=== PATIENT | female | born 1965 | race Caucasian/White ===

== ENCOUNTER 2019-10-29 18:38 | Emergency (ER) | payer OTHER, SELFPAY ==
[2019-10-29 19:04] VITALS: BP 158/100; PULSE 84; RESP 20; TEMP 36.9; O2SAT 97
--- NOTE | 2019-10-29 19:22 | ED.GENADULT ---
HPI - General Adult General Chief complaint: Upper Respiratory Infection Stated complaint: cough Time Seen by Provider: 10/29/19 19:22 Source: patient Mode of arrival: ambulatory Limitations: no limitations History of Present Illness HPI narrative: 53-year-old female patient presents to the [facility] with complaints of cold symptoms and cough for the past 3 to 4 days. Denies any fevers. Patient denies any ear pain. Patient states she has been a little stuffy with a runny nose. Denies any sore throat. Patient states she has had a lot of drainage in the back the throat and states that she coughs mostly when she lays down at night. Denies any chest pain or shortness of breath. Patient states she is an active smoker. Patient denies getting a flu shot this year. Patient states she has tried DayQuil, NyQuil for her symptoms. Related Data Allergies Allergy/AdvReac Type Severity Reaction Status Date / Time Sulfa (Sulfonamide Allergy Unknown Rash Verified 10/29/19 19:08 Antibiotics) Review of Systems Review of Systems: Narrative: CONSTITUTIONAL: Denies fever, chills, or sweats. EYES: Denies visual changes, redness, or discharge. ENT: Positive rhinorrhea, congestion, denies sore throat, or otalgia. CARDIOVASCULAR: Denies chest pain, palpitations, or edema. RESPIRATORY: Positive cough, denies dyspnea. GASTROINTESTINAL: Denies abdominal pain, nausea, vomiting, or diarrhea. GENITOURINARY: Denies dysuria or hematuria. SKIN: Denies rash or itching. MUSCULOSKELETAL: Denies back pain, joint pain, or myalgia. NEUROLOGIC: Denies headache, numbness, or weakness. PSYCHIATRIC: Denies anxiety or depression. PMFSH Comments At the time of my signature I agree with nursing past medical history, surgical, social, and family history. There is no relevant family history pertinent to the presenting complaint. Exam Narrative: Exam Narrative: GENERAL: Well-appearing, well-nourished, and in no acute distress. HEAD: Normocephalic, atraumatic. No tenderness noted to frontal and maxillary sinuses on palpation. EYES: PERRLA and EOMI. ENT: Nares with erythema and edema noted bilaterally, no rhinorrhea or epistaxis. Mucous membranes moist. Posterior pharynx with some postnasal drip but no erythema no foreign bodies no exudates or lesions present. Bilateral TMs are clear with no erythema or foreign bodies in the canal NECK: Supple. No lymphadenopathy CHEST: Clear to auscultation. No respiratory distress. HEART: Regular rate and rhythm. No murmur heard. Normal peripheral pulses. ABDOMEN: Soft, nontender, nondistended, normal active bowel sounds. EXTREMITIES: Normal range of motion. No edema. SKIN: Warm, dry, no rash. NEURO: No focal deficits. Alert and oriented x3. Course Vital Signs Vital signs: Vital Signs Temperature 36.9 C 10/29/19 19:04 Pulse Rate 84 10/29/19 19:04 Respiratory Rate 10/29/19 19:04 Blood Pressure 158/100 H 10/29/19 19:04 Pulse Oximetry 97 10/29/19 19:04 Temperature 36.9 C 10/29/19 19:04 Pulse Rate 84 10/29/19 19:04 Respiratory Rate 10/29/19 19:04 Blood Pressure 158/100 H 10/29/19 19:04 Pulse Oximetry 97 10/29/19 19:04 Vital signs reviewed. The patient has been informed that they may have pre-hypertension or Hypertension based on a BP reading in the department. I recommend that the patient call the primary care provider listed on their discharge instructions or a physician of their choice this week to arrange follow up for further evaluation of possible pre-hypertension or Hypertension Medical Decision Making Differential Diagnosis Differential Diagnosis: Differential diagnosis: Allergic rhinitis, chronic sinusitis, tonsillitis, acute sinusitis, infectious mononucleosis, seasonal influenza, pertussis, diphtheria, meningococcal disease, viral syndrome, viral bronchitis, RSV. Notified patient that her lungs today are nice and clear. Discussed with patient I think that mostly her cough i
== END 2019-10-29 19:30 | disposition home or self-care (01) ==
PROVIDERS: Emergency Provider Nurse Practitioner Family
DX: J06.9 Acute upper respiratory infection, unspecified (principal); F17.200 Nicotine dependence, unspecified, uncomplicated; I10 Essential (primary) hypertension
CPT/HCPCS: 99213; G0463

== ENCOUNTER 2022-09-07 13:54 | Emergency (ER) | payer OTHER, SELFPAY ==
[2022-09-07 14:08] VITALS: BP 150/79; PULSE 93; RESP 16; TEMP 36.6; O2SAT 98
--- NOTE | 2022-09-07 14:11 | ED.NAVMDI ---
HPI - Nausea/Vomiting/Diarrhea General Chief complaint: Back Pain/Injury Stated complaint: Vomiting Time Seen by Provider: 09/07/22 14:11 Source: patient and RN notes reviewed History of Present Illness HPI Narrative: patient is a 56-year-old female who presents to Urgent Care with her sister with complaints of right posterior shoulder pain. Patient states that she has been having a lot of dry heaves and nausea for the last 2 days that caused her to pull a muscle in her shoulder. Patient denies any abdominal discomfort. States that she has had a lot of chills and nausea. Denies any urinary symptoms. Denies any recent fevers. Patient has been using ice and heat for discomfort. No other acute complaints. No acute distress noted. Patient aware of the plan of care. Some parts of this dictation were generated by voice recognition software and may contain typographical and/or grammatical inaccuracies. Related Data Home Medications Medication Instructions Recorded Confirmed cyclobenzaprine 10 mg tablet mg 09/07/22 diclofenac sodium 1 % topical gel topical 09/07/22 methocarbamol 500 mg tablet mg 09/07/22 naproxen 500 mg tablet mg 09/07/22 Allergies Allergy/AdvReac Type Severity Reaction Status Date / Time Sulfa (Sulfonamide Allergy Unknown Rash Verified 09/07/22 14:26 Antibiotics) Review of Systems Review of Systems: CONSTITUTIONAL: Denies fever, chills, or sweats. EYES: Denies visual changes, redness, or discharge. ENT: Denies rhinorrhea, congestion, sore throat, or otalgia. CARDIOVASCULAR: Denies chest pain, palpitations, or edema. RESPIRATORY: Denies cough or dyspnea. GASTROINTESTINAL: reports nausea and dry heaves GENITOURINARY: Denies dysuria or hematuria. SKIN: Denies rash or itching. MUSCULOSKELETAL: Reports of posterior right shoulder pain NEUROLOGIC: Denies headache, numbness, or weakness. All other systems reviewed are negative, except as documented in HPI. PMFSH Comments At the time of my signature, I reviewed and agree with the nursing past medical, surgical, social, and family history. There is no relevant family history pertinent to the patient complaint. Exam Narrative: GENERAL: This is a well-nourished, well-developed patient, in no apparent distress. HEAD: normocephalic, atraumatic. EYES: PERRL. Sclera clear/white. Vision is grossly intact. EARS: External ears normal, NOSE: External nose normal with no obvious nasal discharge, nares without redness, no rhinorrhea. THROAT: Mucous membranes moist NECK: Neck supple, CARDIOVASCULAR: Regular rate and rhythm without murmurs, gallops, or rubs. RESPIRATORY: Clear to auscultation. Breath sounds equal bilaterally. No wheezes, rales, or rhonchi. GASTROINTESTINAL: Abdomen soft, non-tender, nondistended. Bowel sounds are active. SKIN: warm, intact with no suspicious lesions or rash, good texture and turgor. NEURO: awake, alert, and oriented to person, place and time. There were no obvious focal neurologic abnormalities. EXTREMITIES: range of motion of right upper extremity within normal limits with mild to moderate exacerbated posterior right cervical/ shoulder pain. BACK: Negative bilateral CVA tenderness Course Course Level of Care: Express Care Visit Vital Signs Vital signs: Vital Signs Temperature 97.9 F 09/07/22 14:08 Pulse Rate 93 09/07/22 14:08 Respiratory Rate 16 09/07/22 14:08 Blood Pressure 150/79 H 09/07/22 14:08 Pulse Oximetry 98 09/07/22 14:08 Oxygen Delivery Room Air 09/07/22 14:08 Temperature 97.9 F 09/07/22 14:08 Pulse Rate 93 09/07/22 14:08 Respiratory Rate 16 09/07/22 14:08 Blood Pressure 150/79 H 09/07/22 14:08 Pulse Oximetry 98 09/07/22 14:08 Oxygen Delivery Room Air 09/07/22 14:08 reviewed- Patient is informed that they may have pre-hypertension or hypertension based on a blood pressure reading in the department. I recommend the patient call the primary care provider l
== END 2022-09-07 15:13 | disposition home or self-care (01) ==
PROVIDERS: Emergency Provider Nurse Practitioner Family
DX: N39.0 Urinary tract infection, site not specified (principal); S16.1XXA Strain of muscle, fascia and tendon at neck level, initial encounter; X58.XXXA Exposure to other specified factors, initial encounter; I10 Essential (primary) hypertension
CPT/HCPCS: 81003; 87077; 87086; 87186; 99213; G0463

== ENCOUNTER 2022-11-13 13:04 | Emergency (ER) | payer OTHER, SELFPAY ==
[2022-11-13 13:10] VITALS: BP 135/73; PULSE 73; RESP 20; TEMP 36.4; O2SAT 98
--- NOTE | 2022-11-13 14:07 | ED.URI ---
HPI - URI/Sore Throat General Chief Complaint: Upper Respiratory Infection Stated Complaint: Ear Pain/Cough Time Seen by Provider: 11/13/22 14:05 Source: patient, RN notes reviewed and old records reviewed Mode of arrival: ambulatory Limitations: no limitations History of Present Illness HPI Narrative: 56 year old female who presents to [facility] care with complaints of left ear pain and cough for the past 6 days ,patiennt reports that she has had some expectoration of clear drainage. Patient reports that she has noted some wheezing intermittently has had history of Bronchitis in past. Patient has been taking Tylenol for her discomfort. MD elicited complaint: cough and other (left ear pain) Pertinent past history: other (bronchitis, tobacco abuse) Onset (ago): day(s) (6) Pain scale (0-10): 9 Description of mucous: clear Able to tolerate fluids by mouth: Yes Treatments prior to arrival: acetaminophen Related Data Allergies Allergy/AdvReac Type Severity Reaction Status Date / Time Sulfa (Sulfonamide Allergy Unknown Rash Verified 11/13/22 13:22 Antibiotics) Review of Systems Review of Systems: CONSTITUTIONAL: Denies malaise, chills, sweats, or fever. EYES: Denies visual changes, redness, or discharge. ENT: Reports rhinorrhea, congestion, sinus pain,left otalgia no sore throat. CARDIOVASCULAR: Denies chest pain, palpitations, or edema. RESPIRATORY: Reports cough.? Denies dyspnea. GASTROINTESTINAL: Denies abdominal pain, nausea, vomiting, diarrhea SKIN: Denies rash or itching. MUSCULOSKELETAL: Denies myalgia. NEUROLOGIC: Denies headache. All systems reviewed & are unremarkable except as noted in HPI and below [facility] Past Medical History Medical History (Updated 11/14/22 @ 16:10 by Aida Caro NP) Hypertension Right wrist fracture hardware Ulnar nerve impingement release performed right Surgical History Surgical History (Updated 11/14/22 @ 16:08 by Aida Caro NP) H/O tubal ligation History of salpingo-oophorectomy right Social History Social History (Updated 11/14/22 @ 16:13 by Aida Caro NP) Smoking packs per day: 0.5 Smoking cigarettes per day: 10.0 Years smoked: 18 Smoking pack-years: 9.00 Smoking status: Current every day smoker Tobacco type: cigarettes Alcohol intake: unknown Substance use type: does not use Living arrangements: with family Gender identity (if verbalized by the patient): Female Comments At time of signature, agree with nursing past medical, surgical, social and family history. There is no relevant family history pertinent to the presenting complaint Exam Narrative: GENERAL: Well-appearing, well-nourished, and in no acute distress. HEAD: Normocephalic EYES: PERRLA, conjunctivae clear ENT: Nares clear, turbinates edematous and erythematous, clear discharge. Mucous membranes moist. TM pearly mercedes with dull light reflex bilaterally; no tragal tenderness, left ear pain reported. Oropharynx erythematous without lesions. Tonsils not enlarged and without exudate, no drooling, no hoarseness, no trismus, uvula midline. NECK: Supple. No lymphadenopathy CHEST: Faint wheezes upper lobes, breath sounds equal. faint wheezing upper lobes,no rhonchi, rales, or stridor. No respiratory distress, speaks in full sentences.SAO2 98% on room air HEART: Regular rate and rhythm. No murmur heard. SKIN: Warm, dry, no rash. NEURO: Alert and oriented x3. PSYCH: Normal mood and affect Course Course Emergency Course: Patient is aware of diagnosis, understands and agrees to treatment plan.? Anticipatory guidance given.? Patient agrees to follow-up as directed and is aware of reasons to seek care at the emergency department. Portions of this record may have been created with voice recognition software Level of Care: Express Care Visit Vital Signs Vital signs: Vital Signs Temperature 36.4 C L 11/13/22 13:10 Pulse Rate 73 11/13
== END 2022-11-13 14:23 | disposition home or self-care (01) ==
PROVIDERS: Emergency Provider Registered Nurse; PCP Family Medicine
DX: J40 Bronchitis, not specified as acute or chronic (principal); H92.02 Otalgia, left ear; F17.210 Nicotine dependence, cigarettes, uncomplicated; I10 Essential (primary) hypertension
CPT/HCPCS: 99213; G0463

== ENCOUNTER 2022-12-13 14:54 | Emergency (ER) | payer OTHER, SELFPAY ==
[2022-12-13 14:58] VITALS: BP 145/71; PULSE 100; RESP 16; TEMP 37.3; O2SAT 96
--- NOTE | 2022-12-13 15:08 | ED.URI ---
HPI - URI/Sore Throat General Chief Complaint: Upper Respiratory Infection Stated Complaint: Chest Congestion Time Seen by Provider: 12/13/22 15:09 Source: patient, RN notes reviewed and old records reviewed Mode of arrival: ambulatory Limitations: no limitations History of Present Illness HPI Narrative: 57 YEAR OLD FEMALE WHO PRESENTS TO [facility] CARE with one week duration of cough, runny nose and some sinus congestion, denies any fevers chills or sweats. Patient has taken Claritin,DayQuil and NyQuil for her symptoms without resolution. Patient reports that she recently quit tobacco use. Patient was seen about a month ago with similar symptoms but had wheezing at that time and was treated for Bronchitis.. MD elicited complaint: cough, rhinorrhea and nasal congestion Pertinent past history: other (previous tobacco use reports she recently quit) Onset (ago): week(s) (1) Able to tolerate fluids by mouth: Yes Treatments prior to arrival: other (claritin, NyQuil, and DayQuil) Related Data Allergies Allergy/AdvReac Type Severity Reaction Status Date / Time Sulfa (Sulfonamide Allergy Unknown Rash Verified 12/13/22 15:06 Antibiotics) Review of Systems Review of Systems: CONSTITUTIONAL: Denies malaise, chills, sweats, or fever. EYES: Denies visual changes, redness, or discharge. ENT: Reports rhinorrhea, congestion, sinus pain,no otalgia or sore throat. CARDIOVASCULAR: Denies chest pain, palpitations, or edema. RESPIRATORY: Reports cough.? Denies dyspnea. or any pain GASTROINTESTINAL: Denies abdominal pain, nausea, vomiting, diarrhea SKIN: Denies rash or itching. MUSCULOSKELETAL: Denies myalgia. NEUROLOGIC: Denies headache. All systems reviewed & are unremarkable except as noted in HPI and below [facility] Past Medical History Medical History (Updated 12/15/22 @ 14:18 by Aida aCro NP) Hypertension Right wrist fracture hardware Ulnar nerve impingement release performed right Surgical History Surgical History (Updated 11/14/22 @ 16:08 by Aida Caro NP) H/O tubal ligation History of salpingo-oophorectomy right Social History Social History (Updated 11/14/22 @ 16:13 by Aida Caro NP) Smoking packs per day: 0.5 Smoking cigarettes per day: 10.0 Years smoked: 18 Smoking pack-years: 9.00 Smoking status: Current every day smoker Tobacco type: cigarettes Alcohol intake: unknown Substance use type: does not use Living arrangements: with family Gender identity (if verbalized by the patient): Female Comments At time of signature, agree with nursing past medical, surgical, social and family history. There is no relevant family history pertinent to the presenting complaint Exam Narrative: GENERAL: Well-appearing, well-nourished, and in no acute distress. HEAD: Normocephalic EYES: PERRLA, conjunctivae clear ENT: Nares clear, turbinates edematous and erythematous, clear discharge. Mucous membranes moist. TM pearly mercedes with dull light reflex bilaterally; no tragal tenderness. Oropharynx erythematous without lesions. Tonsils not enlarged and without exudate, no drooling, no hoarseness, no trismus, uvula midline.post nasal drainage NECK: Supple. No lymphadenopathy CHEST: Clear to auscultation, breath sounds equal. No wheezing, rhonchi, rales, or stridor. No respiratory distress, speaks in full sentences.cough noted SAO2 96% on room air HEART: Regular rate and rhythm. No murmur heard. SKIN: Warm, dry, no rash. NEURO: Alert and oriented x3. PSYCH: Normal mood and affect Course Course Emergency Course: Patient is aware of diagnosis, understands and agrees to treatment plan.? Anticipatory guidance given.? Patient agrees to follow-up as directed and is aware of reasons to seek care at the emergency department. Portions of this record may have been created with voice recognition software Level of Care: Express Care Visit Vital Signs Vital signs: Vital
== END 2022-12-13 15:30 | disposition home or self-care (01) ==
PROVIDERS: Emergency Provider Registered Nurse; PCP Family Medicine
DX: J06.9 Acute upper respiratory infection, unspecified (principal); F17.210 Nicotine dependence, cigarettes, uncomplicated; I10 Essential (primary) hypertension
CPT/HCPCS: 99213; G0463

== ENCOUNTER 2023-07-24 10:40 | Emergency (ER) | payer OTHER, SELFPAY ==
[2023-07-24 10:52] VITALS: BP 140/89; PULSE 88; RESP 16; TEMP 36.1; O2SAT 94
--- NOTE | 2023-07-24 11:12 | ED.GENADULT ---
HPI - General Adult General Chief complaint: Back Pain/Injury Stated complaint: Back Pain Source: patient Mode of arrival: ambulatory Limitations: no limitations History of Present Illness HPI narrative: Patient presents for evaluation of low back pain. Symptom onset 3 days ago. She injured herself at work the day before symptom onset. She was pushing a barrel through a door when the door swung back and hit her in the low back. She now reports 9/10 pain in the affected area. No descriptive quality to the pain. No radicular component. No paresthesias. No bladder/bowel incontinence. She tried taking ibuprofen for her pain with some improvement in her symptoms thereafter. Related Data Allergies Allergy/AdvReac Type Severity Reaction Status Date / Time Sulfa (Sulfonamide Allergy Unknown Rash Verified 12/13/22 15:06 Antibiotics) Review of Systems Review of Systems: CONSTITUTIONAL: Denies fever, chills, or sweats. EYES: Denies visual changes, redness, or discharge. ENT: Denies rhinorrhea, congestion, sore throat, or otalgia. CARDIOVASCULAR: Denies chest pain, palpitations, or edema. RESPIRATORY: Denies cough or dyspnea. GASTROINTESTINAL: Denies abdominal pain, nausea, vomiting, or diarrhea. GENITOURINARY: Denies dysuria or hematuria. SKIN: Denies rash or itching. MUSCULOSKELETAL: Reports low back pain. Denies joint pain, or myalgia. NEUROLOGIC: Denies headache, numbness, dizziness, or weakness. PSYCHIATRIC: Denies anxiety or depression. [facility] Past Medical History Medical History Back contusion Hypertension Right wrist fracture hardware Ulnar nerve impingement release performed right Surgical History Surgical History H/O tubal ligation History of salpingo-oophorectomy right Family History Family History Mother Family history non-contributory Social History Social History Smoking packs per day: 0.5 Smoking cigarettes per day: 10.0 Years smoked: 18 Smoking pack-years: 9.00 Smoking status: Current every day smoker Tobacco type: cigarettes Alcohol intake: unknown Substance use type: does not use Living arrangements: with family Gender identity (if verbalized by the patient): Female Spiritual care concerns: No Exam Narrative: GENERAL: Well-appearing, well-nourished, and in no acute distress. HEAD: Normocephalic, atraumatic. EYES: PERRLA and EOMI. ENT: Nares clear, no rhinorrhea or epistaxis. Mucous membranes moist. Oropharynx without tonsillar hypertrophy exudate or other lesions. Bilateral TMs pearly mercedes nonbulging NECK: Supple. No adenopathy or masses. No carotid bruits or JVD CHEST: Clear to auscultation. No respiratory distress. No wheezes rales or rhonchi HEART: Regular rate and rhythm. No murmur heard. Normal peripheral pulses. ABDOMEN: Soft, nontender, nondistended, normal active bowel sounds. BACK: Tenderness diffusely in lower lumbar spinal region and posterior aspect of pelvis EXTREMITIES: Normal range of motion. No edema. SKIN: Warm, dry, no rash. NEURO: No focal deficits. Alert and oriented x3. PSYCH: Normal mood and affect. Course Course Emergency Course: This is a 57-year-old female who presented for evaluation of low back pain. I recommended imaging, which she declined. Would simply like prescription for pain medication and a work note. Will DC with tramadol. Continue to take NSAIDs as needed. Follow up with primary provider. Go to the ER for worsening symptoms. Patient in agreement plan of care. Level of Care: Express Care Visit Vital Signs Vital signs: Vital Signs Temperature 36.1 C L 07/24/23 10:52 Pulse Rate 88 07/24/23 10:52 Respiratory Rate 16 07/24/23 10:52 Blood Pressure 140/89
== END 2023-07-24 11:16 | disposition home or self-care (01) ==
PROVIDERS: Emergency Provider Nurse Practitioner
DX: S30.0XXA Contusion of lower back and pelvis, initial encounter (principal); W20.8XXA Other cause of strike by thrown, projected or falling object, initial encounter; I10 Essential (primary) hypertension; F17.210 Nicotine dependence, cigarettes, uncomplicated
CPT/HCPCS: 99213; G0463

== ENCOUNTER 2023-11-07 15:20 | Emergency (ER) | payer OTHER, SELFPAY ==
--- NOTE | ~2023-11-07 | XR_ITS ---
EXAMINATION: XR chest 2V DATE: 11/07/2023 16:10 INDICATION: Cough. Left anterior chest pain. Fall. TECHNIQUE: Frontal and lateral views of the chest were obtained. COMPARISON: Chest 2 views 11/01/2018 FINDINGS: There is mild atelectasis in left midlung zone and at left lung base. There is a small left pleural effusion. No pneumothorax. The heart size is normal. IMPRESSION: 1. Small left pleural effusion. 2. Mild atelectasis in left mid and lower lung zones. Reviewed, dictated and finalized at location E. [facility] [employer]
[2023-11-07 15:25] VITALS: BP 133/77; PULSE 108; RESP 22; TEMP 37; O2SAT 93
--- NOTE | 2023-11-07 15:43 | ECG_ITS ---
Measurements Intervals [place] Rate: 78 P: 69 RI: 158 QRS: 79 QRSD: 103 T: 62 QT: 353 QTc: 403 Interpretive Statements SINUS RHYTHM WITH MARKED SINUS ARRHYTHMIA POSSIBLE LEFT ATRIAL ENLARGEMENT [-0.1mV P WAVE IN V1/V2] NONSPECIFIC ST & T-WAVE ABNORMALITY WARNING: DATA QUALITY MAY AFFECT INTERPRETATION NO PREVIOUS ECG AVAILABLE FOR COMPARISON Electronically Signed On 11-08-2023 11:08:50 [employer]OOFER PREPRESS by José Dc M.D.
--- NOTE | 2023-11-07 16:14 | ED.URI ---
HPI - URI/Sore Throat General Chief Complaint: Upper Respiratory Infection Stated Complaint: Fall Injury/Chest Pain/Cough Time Seen by Provider: 11/07/23 16:00 Source: patient, RN notes reviewed and old records reviewed Mode of arrival: ambulatory Limitations: no limitations History of Present Illness HPI Narrative: 57 year old female presents to express care with complaints of falling while moving on 11/02/2023 carrying a box of [employer]ia moment figurines and hit her left eye on the corner of the box and hir her right forearm and her left breast area. Patient reports that she has been having pain to the left chest where dhe hit her chest for the past 3 days. Pateint deneies any diaphoresis, no acute shortness of breath or and associated nausea. Patient reports that she has had some cough. MD elicited complaint: cough and other (left chest pain in breast area) Pertinent past history: other (bronchitis, tobacco abuse) Onset (ago): day(s) (3) Severity: moderate Pain scale (0-10): 5 Able to tolerate fluids by mouth: Yes Treatments prior to arrival: acetaminophen Related Data Home Medications Medication Instructions Recorded Confirmed atorvastatin 20 mg tablet 20 mg PO DAILY 11/07/23 11/07/23 benzonatate 100 mg capsule 100 mg PO TID PRN Cough 11/07/23 11/07/23 budesonide-formoterol HFA 80 2 puff inhalation BID 11/07/23 11/07/23 mcg-4.5 mcg/actuation aerosol inhaler (Symbicort) sertraline 25 mg tablet 25 mg PO DAILY 11/07/23 11/07/23 Allergies Allergy/AdvReac Type Severity Reaction Status Date / Time Sulfa (Sulfonamide Allergy Unknown Rash Verified 11/07/23 16:26 Antibiotics) Review of Systems Review of Systems: CONSTITUTIONAL: Denies fever, chills, or sweats. EYES: Denies visual changes, redness, or discharge.has bruise under left eye ENT: Denies rhinorrhea, congestion, sore throat, or otalgia. CARDIOVASCULAR: left chest pain along breast, no palpitations, or edema. RESPIRATORY: Reports cough no dyspnea. GASTROINTESTINAL: Denies abdominal pain, nausea, vomiting, or diarrhea. GENITOURINARY: Denies dysuria or hematuria. SKIN: Denies rash or itching. bruise right forearm MUSCULOSKELETAL: Denies back pain, joint pain, or myalgia. NEUROLOGIC: Denies headache, numbness, or weakness. PSYCHIATRIC: Denies anxiety or depression. All systems reviewed & are unremarkable except as noted in HPI and below PMF[facility] Past Medical History Medical History (Updated 11/09/23 @ 19:36 by Aida Caro NP) Back contusion Bronchitis Elevated cholesterol Hypertension Right wrist fracture hardware Ulnar nerve impingement release performed right Surgical History Surgical History H/O tubal ligation History of salpingo-oophorectomy right Family History Family History Mother Family history non-contributory Social History Social History Smoking packs per day: 0.5 Smoking cigarettes per day: 10.0 Years smoked: 18 Smoking pack-years: 9.00 Smoking status: Current every day smoker Tobacco type: cigarettes Alcohol intake: unknown Substance use type: does not use Living arrangements: with family Gender identity (if verbalized by the patient): Female Spiritual care concerns: No Comments At time of signature, agree with nursing past medical, surgical, social and family history. There is no relevant family history pertinent to the presenting complaint Exam Narrative: GENERAL: Well-appearing, well-nourished, and in no acute distress. HEAD: Normocephalic, atraumatic. EYES: PERRLA and EOMI.bruise under left eye, no acute pain or swelling ENT: Nares clear, no rhinorrhea or epistaxis. Mucous membranes moist.TM's normal .throat pink without redness NECK: Supple.no lymphadenopathy CHEST: Clear to auscultation. No respiratory distress.recent
== END 2023-11-07 16:35 | disposition home or self-care (01) ==
PROVIDERS: Emergency Provider Registered Nurse
DX: J90 Pleural effusion, not elsewhere classified (principal); S20.212A Contusion of left front wall of thorax, initial encounter; S00.12XA Contusion of left eyelid and periocular area, initial encounter; W19.XXXA Unspecified fall, initial encounter; Y93.E6 Activity, residential relocation; E78.00 Pure hypercholesterolemia, unspecified; I10 Essential (primary) hypertension; F17.210 Nicotine dependence, cigarettes, uncomplicated
CPT/HCPCS: 71046; 93005; 99213; G0463

== ENCOUNTER 2024-06-12 13:16 | Emergency (ER) | payer OTHER, SELFPAY ==
[2024-06-12 13:28] VITALS: BP 115/76; PULSE 110; RESP 16; TEMP 36.5; O2SAT 98
--- NOTE | 2024-06-12 13:51 | ED.EXTPRO ---
HPI - Extremity Problem General Chief complaint: Extremity Problem,Nontraumatic Stated complaint: lump on left wrist Time Seen by Provider: 06/12/24 13:51 Source: patient Mode of arrival: ambulatory Limitations: no limitations History of Present Illness HPI Narrative: 58 y/o female presented for c/o left wrist swelling, a lump on the wrist, and decreased range of motion x4 days. Reports pain to the thumb and little finger. Pain is worse at night and reports 'jerking' movement of the left forearm. Pain is better when lifting hand over head. Denies known injury. Denies numbness, tingling, weakness, or change in temp of the extremity. Taking Tylenol and ibuprofen. Right hand dominant. 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 Related Data Allergies Allergy/AdvReac Type Severity Reaction Status Date / Time Sulfa (Sulfonamide Allergy Unknown Rash Verified 11/07/23 16:26 Antibiotics) Review of Systems Review of Systems: CONSTITUTIONAL: Denies body aches, fever, chills CARDIOVASCULAR: Denies chest pain, palpitations, or edema. RESPIRATORY: Denies cough or dyspnea. SKIN: Denies rash, itching, or wounds. MUSCULOSKELETAL: Reports left wrist swelling and hand pain NEUROLOGIC: Denies headache, numbness, tingling, or weakness. All systems reviewed & are unremarkable except as noted in HPI and below PMFSH Past Medical History Medical History Back contusion Bronchitis Elevated cholesterol Hypertension Right wrist fracture hardware Ulnar nerve impingement release performed right Surgical History Surgical History H/O tubal ligation History of salpingo-oophorectomy right Family History Family History Mother Family history non-contributory Social History Social History Smoking packs per day: 0.5 Smoking cigarettes per day: 10.0 Years smoked: 18 Smoking pack-years: 9.00 Smoking status: Current every day smoker Tobacco type: cigarettes Alcohol intake: unknown Substance use type: does not use Living arrangements: with family Gender identity (if verbalized by the patient): Female Spiritual care concerns: No Comments At time of signature, I have reviewed and agree with nursing past medical, surgical, social and family history unless otherwise noted. Please see nursing chart for further information. There is no relevant family history pertinent to the presenting complaint Exam Narrative: GENERAL: Well-appearing CHEST: Speaks in full sentences. No respiratory distress. HEART: Regular rate and rhythm. Normal and equal peripheral pulses. EXTREMITIES: Left hand has slightly limited strength due to pain. Decreased range of motion at wrist. Pain reported to the 1st and 5th digits. Subcutaneous skin colored firm nodule to volar aspect of distal ulna, mild swelling over the carpals. No ecchymosis, erythema or warmth, No point tenderness. No open wounds, or obvious deformity; alignment normal, Normal sensation. pulse palpable and equal bilaterally, skin warm, dry, pink. Capillary refill less than 3 seconds. SKIN: Warm, dry NEURO: Alert and oriented x3. PSYCH: Normal mood and affect Course Course Emergency Course: Patient is aware of diagnosis, understands and agrees to treatment plan. Anticipatory guidance given. Patient agrees to follow-up as directed and is aware of reasons to seek care at the emergency department. Portions of this record may have been created with voice recognition software Level of Care: Express Care Visit Vital Signs Vital signs: Vital Signs Temperature 97.7 F 06/12/24 13:28 Pulse Rate 110 H 06/12/24 13:28 Respiratory Rate 16 06/12/24 13:28 Blood Pressure 115/76 06/12/24 13
== END 2024-06-12 14:05 | disposition home or self-care (01) ==
PROVIDERS: Emergency Provider Nurse Practitioner Family
DX: R22.32 Localized swelling, mass and lump, left upper limb (principal); F17.210 Nicotine dependence, cigarettes, uncomplicated; E78.00 Pure hypercholesterolemia, unspecified; I10 Essential (primary) hypertension
CPT/HCPCS: 99213; G0463